=== PATIENT | male | born 1970 | race Caucasian/White ===

== ENCOUNTER 2016-11-17 16:37 | Emergency (ER) | payer OTHER ==
[~2016-11-17] VITALS: Ht 182.9 cm; Wt 131.5 kg
[2016-11-17 17:23] VITALS: BP 126/71
== END 2016-11-17 19:42 | disposition home or self-care (01) ==
LOC: ER 16:40
DX: N49.2 Inflammatory disorders of scrotum (principal)
CPT/HCPCS: 10160; 99283; A4606; Z7610; A6402; A6407; J3490